=== PATIENT | male | born 1945 | race Caucasian/White ===

== ENCOUNTER → 2018-02-16 | Outpatient (CLI) | payer MEDICARE, BC ==
[~2018-02-16] MED LIST: SODIUM CHLORIDE 0.9% 1,000 ML IV ONE
[2018-02-16 11:45] VITALS: BP 125/80; PULSE 87; RESP 16; TEMP 98.2
== END | disposition home or self-care (01) ==
LOC: PROCWHC3 10:54
PROVIDERS: ATTEND Internal Medicine Hematology & Oncology
DX: C25.0 Malignant neoplasm of head of pancreas (principal)
CPT/HCPCS: 96360; 96361; J1642

== ENCOUNTER → 2018-03-02 | Outpatient (CLI) | payer MEDICARE, BC ==
[2018-03-02 09:30] LABS: Blood Urea Nitrogen 28 mg/dL (9-20)
--- NOTE | 2018-03-04 14:58 | CT ---
EXAMINATION TYPE: CT abdomen w con DATE OF EXAM: 03/02/2018 COMPARISON: Outside MRI submitted from [facility] dated 11/25/2017 HISTORY: Pancreatic CA CT DLP: 288.1 mGycm Automated exposure control for dose reduction was used. TECHNIQUE: Helical acquisition of images was performed from the lung bases through the top of iliac crest to include entire abdomen. CONTRAST: Performed with Oral Contrast and with IV Contrast, patient injected with 100 mL of Isovue 370. FINDINGS: Exam limited by significant motion artifact. LUNG BASES: No significant abnormality is appreciated. LIVER/GB: There Are now approximately 17 intrahepatic masses which have ill-defined borders involve all lobes and seg ments. Largest within the left lobe measures approximately 1.4 x 1.4 cm. There is a lesion near the h epatic dome measuring approximately 1.5 x 1.4 cm.. Degree of pneumobilia noted and there is a biliary stent noted in position. PANCREAS: There again appears to be poorly defined infiltrative mass involving the head and uncinate process of the pancreas. Measures approximately 3.4 x 3.2 x 2.7 cm. Previously reported to have measu red approximately 3.5 cm in greatest axis. Some involvement of the adjacent duodenum is again not exc luded. Biliary stent is noted within the small bowel extending into the common bile duct. There is ve ry mild residual intrahepatic biliary dilation. Assessment of the pancreas and pancreatic region is l imited due to motion artifact. There does appear to be dilation of the pancreatic duct. SPLEEN: No significant abnormality is seen. ADRENALS: No significant abnormality is seen. KIDNEYS: There is a new hypodense lesion involving the mid lateral margin of the right kidney which d oes not meet the criteria of a simple cyst measuring 2 cm. There is a smaller hypodensity involving t he left kidney which is compatible with a simple cyst measuring less than a centimeter. BOWEL: No significant abnormality is seen. LYMPH NODES: Previously noted borderline lymph node in the mesentery measuring 1.3 x 1.0 cm appears stable. Additional shotty adenopathy noted.. OSSEOUS STRUCTURES: Hypertrophic and degenerative change of the spine noted. A large spur extends at L5-S1 posterior to the right which results encroaches upon the right nerve root additional disc bulg ing and spur formation at L3-4 and L2-3 noted. Suspect canal stenosis.. OTHER: Visualized aorta of normal caliber. Hypertrophic and degenerative change of the spine noted. IMPRESSION: 1. Persistent infiltrating poorly defined pancreatic head and uncinate process mass with contact of t he duodenum is stable. The mass does encroach upon the mesenteric vasculature. Findings are similar. However, there are numerous new masses within the liver which have a pattern compatible with widespr ead hepatic metastases. 2. Previously noted adenopathy appears to be stable. 3. There is a new right mid pole renal lesion which does not meet the criteria of a simple cyst and m easures 2 cm. Cyst not clearly seen on the previous exam submitted from the outside hospital. Recomme nd follow-up ultrasound for further characterization.
== END | disposition home or self-care (01) ==
LOC: RADPROMAIN 08:45
PROVIDERS: ATTEND Internal Medicine Hematology & Oncology
DX: C25.0 Malignant neoplasm of head of pancreas (principal); N28.9 Disorder of kidney and ureter, unspecified; R59.0 Localized enlarged lymph nodes; R16.0 Hepatomegaly, not elsewhere classified
CPT/HCPCS: 82565; 84520; 74160; J1642; Q9967